=== PATIENT | female | born 1995 | race American Indian/Alaskan Native ===

== ENCOUNTER 2024-04-24 18:12 | Emergency (ER) | payer MEDICAID ==
[~2024-04-24] VITALS: Ht 165.1 cm; Wt 77.0 kg
[2024-04-24 18:19] VITALS: O2SAT 93
[2024-04-24 18:32] VITALS: BP 132/66; PULSE 86; RESP 18; TEMP 97.4; O2SAT 99
== END 2024-04-25 02:22 | disposition left against medical advice (07) ==
LOC: ER 18:12 → EDSEX 18:12 → ER 04-25 02:22
DX: M54.41 Lumbago with sciatica, right side (principal); M79.661 Pain in right lower leg; Z98.890 Other specified postprocedural states
CPT/HCPCS: 93971; 99284